=== PATIENT | female | born 1935 ===

== ENCOUNTER 2016-09-13 11:59 | Inpatient (IN) | payer MEDICARE ==
[2016-09-13 12:37] VITALS: BMI 26.6
--- NOTE | 2016-09-13 12:50 | CT ---
PROCEDURE: CT HEAD WITHOUT CONTRAST. HISTORY: CODE STROKE COMPARISON: None available. TECHNIQUE: Axial computed tomography images were obtained through the head/brain without intravenous contrast. This CT exam was performed using one or more of the following dose reduction techniques: Automated exposure control, adjustment of the mA and/or kv according to patient size, and/or use of iterative reconstruction technique. Radiation dose: Total exam DLP = 815.25 mGy-cm. FINDINGS: HEMORRHAGE: No intracranial hemorrhage. BRAIN: Focal encephalomalacia at the right basal ganglia/ thalamus suggestive of old small infarct. Moderate atrophy and a noted. Moderate to extensive white matter hypodensity likely represent chronic microvascular ischemic disease. VENTRICLES: Unremarkable. No hydrocephalus. CALVARIUM: Unremarkable. PARANASAL SINUSES: Unremarkable as visualized. No significant inflammatory changes. MASTOID AIR CELLS: Unremarkable as visualized. No inflammatory changes. OTHER FINDINGS: None. IMPRESSION: No evidence of acute intracranial hemorrhage. Moderate atrophy. Moderate to extensive white matter changes likely represent chronic microvascular ischemic disease. old small infarct at the right basal ganglia/ thalamus.
--- NOTE | 2016-09-13 13:28 | C.PDOC ---
History Of Present Illness 80 yr old female presents to the ER accompanied by her caregiver, states OYSTER GROWER patient was sitting in gabriella couch in her usual state of health when she started staring into space and had involuntary movements to the right arm. 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 Currently the patient denies chest pain, SOB, nausea, vomiting, abdominal pain, headache, dizziness, weakness or numbness. 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 Time Seen by Provider: 09/13/16 12:02 Chief Complaint (Nursing): Weakness/Neurological Deficit History Per: Patient, Other (Caregiver) History/Exam Limitations: no limitations Onset/Duration Of Symptoms: Sudden Onset (OYSTER GROWER) Current Symptoms Are (Timing): Gone Activity At Onset Of Symptoms: Sitting Past Medical History Reviewed: Historical Data, Nursing Documentation, Vital Signs Vital Signs: Last Vital Signs Temp 98.8 F 09/15/16 16:03 Pulse 64 09/15/16 20:00 Resp 20 09/15/16 20:00 BP 136/79 09/15/16 20:00 Pulse Ox 94 L 09/15/16 16:03 - Medical History PMH: Anxiety, Depression, HTN, Hypercholesterolemia Family History: States: No Known Family Hx - Social History Hx Alcohol Use: No Hx Substance Use: No Review Of Systems Except As Marked, All Systems Reviewed And Found Negative. Eyes: Negative for: Vision Change Gastrointestinal: Negative for: Nausea, Vomiting, Abdominal Pain Neurological: Negative for: Weakness, Numbness, Headache, Dizziness Physical Exam - Physical Exam Appears: Well, Non-toxic, No Acute Distress Skin: Warm, Dry Head: Atraumatic, Normacephalic Eye(s): bilateral: Normal Inspection, PERRL, EOMI Oral Mucosa: Moist Neck: Supple Chest: Symmetrical, No Tenderness Cardiovascular: Rhythm Regular, No Murmur Respiratory: Normal Breath Sounds, No Rales, No Rhonchi, No Wheezing Gastrointestinal/Abdominal: Soft, No Tenderness, No Guarding, No Rebound Extremity: Normal ROM, No Swelling Neurological/Psych: Oriented x3 ED Course And Treatment - Laboratory Results Result Diagrams: 09/15/16 05:58 09/14/16 06:14 ECG: Interpreted By Me ECG Rhythm: Sinus Bradycardia ECG Interpretation: No Acute Changes Rate From EC O2 Sat by Pulse Oximetry: 97 - Other Rad CXR X-Ray: Viewed By Me, Read By Radiologist Interpretation: HISTORY: seizure. COMPARISON: No prior. FINDINGS: LUNGS: Mild pulmonary vascular congestion. PLEURA: No significant pleural effusion identified, no pneumothorax apparent. CARDIOVASCULAR: The cardiac silhouette is mildly enlarged. OSSEOUS STRUCTURES: Moderate to severe degenerative changes at the shoulders more prominent on the right. VISUALIZED UPPER ABDOMEN : Normal. OTHER FINDINGS: None. IMPRESSION: Suspicious for mild cardiomegaly and pulmonary vascular congestion. - CT Scan/US CT - Head Other Rad Studies (CT/US): Read By Radiologist, Radiology Report Reviewed CT/US Interpretation: PROCEDURE: CT HEAD WITHOUT CONTRAST. HISTORY: CODE STROKE. COMPARISON: None available. TECHNIQUE: Axial computed tomography images were obtained through the head/brain without intravenous contrast. This CT exam was performed using one or more of the following dose reduction techniques: Automated exposure control, adjustment of the mA and/or kv according to patient size, and/or use of iterative reconstruction technique. Radiation dose: Total exam DLP = 815.25 mGy-cm. FINDINGS: HEMORRHAGE: No intracranial hemorrhage. BRAIN: Focal encephalomalacia at the right basal ganglia/ thalamus suggestive of old small infarct. Moderate atrophy and a noted. Moderate to extensive white matter hypodensity likely represent chronic microvascular ischemic disease. VENTRICLES: Unremarkable. No hydrocephalus. CALVARIUM: Unremarkable. PARANASAL SINUSES: Unremarkable as visualized. No significant inflammatory changes. MASTOID AIR CELLS: Unremarkable as visualized. No inflammatory changes. OTHER FINDINGS: None. IMPRESSION: No evidence of acute intracranial hemorrhage. Moderate atrophy. Moderate to extensive white matter changes likely represent chronic microvascular ischemic disease. old small infarct at the right basal ganglia/ thalamus. MRI - Brain Other Rad Studies (CT/US): Read By Radiologist, Radiology Report Reviewed CT/US Interpretation: PROCEDURE: MRI BRAIN WITH AND WITHOUT CONTRAST. HISTORY : new onset seizure old cva. COMPARISON: None. TECHNIQUE: Multiplanar, multisequence MR images of the brain were obtained with and without intravenous contrast enhancement. FINDINGS: HEMORRHAGE: None. DWI: No evidence of an acute or early subacute infarction. BRAIN PARENCHYMA: Small foci of encephalomalacia at the right basal ganglia and thalamus and right coronal radiata suggestive of old small infarcts. Moderate atrophy and moderate chronic microvascular ischemic disease. ENHANCEMENT: No abnormal intracranial enhancement. VENTRICLES: Unremarkable. No hydrocephalus. CRANIUM: Unremarkable. ORBITS: Grossly unremarkable. PARANASAL SINUSES/MASTOIDS: Clear. VASCULAR SYSTEM: Skull base flow voids intact. OTHER FINDINGS: None . IMPRESSION: No evidence of acute infarct or acute pathology in the brain. No evidence of enhancing mass lesion or abnormal enhancement in the brain. Old lacunar infarcts at the right basal ganglia/thalamus right coronal radiata. Moderate atrophy and moderate chronic microvascular ischemic disease. NIHSS Stroke Scale - Date/Time Evaluation Performed Date Performed: 09/13/16 Time Performed: 13:00 When Was NIHSS Performed: Baseline - How Severe is the Stoke Level of Consciousness: 0=Alert LOC to Questions: 0=Both comments correct LOC to commands: 0=Obeys both correctly Best Gaze: 0=Normal Visual: 0=No visual loss Facial: 1=Minor asymmetry Motor Arm - Left: 0=No drift Motor Arm - Right: 0=No drift Motor Leg - Left: 0=No drift Motor Leg - Right: 0=No drift Limb Ataxia: 0=Absent Sensory: 0=Normal Best Language: 1=Mild to moderate aphasia Dysarthia: 0=Normal articulation (score 2 but does not indicate "minor stroke") Extinction & Inattention (Neglect): 0=Normal, no object Score: 2 Severity Of Stroke: 1-4= Minor Stroke rTPA Inclusion/Exclusion - Refusal of Treatment Patient Refused Treatment: Yes Medical Decision Making Medical Decision Making: Clearly TPA not indicated at this time Orders * CT - Head * MRI - Brain * CXR * EKG * Troponin * CBC * Dig * Keppra IVPB * Sodium Chloride IV Signs/sympt c/w new onset seizure Pt remained stable in the Ed Case discussed with dr Mathew who agreeded with admission also discussed with dr Mart, recomended 1g keppra, then 500 q12 and MRI Disposition Counseled Patient/Family Regarding: Studies Performed, Diagnosis - Disposition Disposition: HOSPITALIZED Disposition Time: 14:10 Condition: FAIR - Clinical Impression Clinical Impression: New onset seizure, Cerebrovascular accident, old - Scribe Statement The provider has reviewed the documentation as recorded by the Jennifer Faust Provider Attestation: All medical record entries made by the Gisselibian were at my direction and personally dictated by me. I have reviewed the chart and agree that the record accurately reflects my personal performance of the history, physical exam, medical decision making, and the department course for this patient. I have also personally directed, reviewed, and agree with the discharge instructions and disposition.
[2016-09-13] MEDS ORDERED: levETIRAcetam 500 MG in Sodium Chloride 0.9% 100 ML IVPB ONE ×2 (13:45→14:30)
[2016-09-13 13:49] LABS: BASO # 0.1 K/uL (0.0-0.2); BASO % 1.5 % (0.0-2.0); EOS # 0.1 K/uL (0.0-0.7); EOS % 2.4 % (0.0-4.0); HEMATOCRIT 33.4 % (34.0-47.0); LYMPH # 1.3 K/uL (1.0-4.3); LYMPH % 22.4 % (20.0-40.0); MEAN CELL VOLUME 86.6 fL (81.0-99.0); MEAN CORPUSCULAR HEMOGLOBIN 28.1 pg (27.0-31.0); MEAN CORPUSCULAR HGB CONC 32.4 g/dL (33.0-37.0); MEAN PLATELET VOLUME 9.5 fL (7.2-11.7); MONO # 0.5 K/uL (0.0-0.8); MONO % 8.7 % (0.0-10.0); RED CELL DISTRIBUTION WIDTH 13.9 % (11.5-14.5); WHITE BLOOD COUNT 5.8 K/uL (4.8-10.8)
[2016-09-13 13:58] LABS: INR 1.1
[2016-09-13 14:07] LABS: CHLORIDE 92 mmol/L (98-107); POTASSIUM 3.6 mmol/L (3.6-5.2); SODIUM 139 mmol/L (132-148)
[2016-09-13 14:10] LABS: ALB/GLOB RATIO 1.3 (1.0-2.1); ALKALINE PHOSPHATASE 59 U/L (38-126); ALT/SGPT 18 U/L (9-52); AST/SGOT 29 U/L (14-36); BILIRUBIN,TOTAL 0.2 mg/dL (0.2-1.3); BLOOD UREA NITROGEN 15 mg/dL (7-17); CARBON DIOXIDE 31 mmol/L (22-30); GFR AFRICAN-AMERICAN > 60; GLUCOSE,RANDOM 100 mg/dL (65-105); TOTAL PROTEIN 7.2 g/dL (6.3-8.3)
[2016-09-13 14:11] LABS: CALCIUM 9.1 mg/dl (8.6-10.4)
--- NOTE | 2016-09-13 15:20 | RAD ---
HISTORY: seizure COMPARISON: No prior. FINDINGS: LUNGS: Mild pulmonary vascular congestion. PLEURA: No significant pleural effusion identified, no pneumothorax apparent. CARDIOVASCULAR: The cardiac silhouette is mildly enlarged. OSSEOUS STRUCTURES: Moderate to severe degenerative changes at the shoulders more prominent on the right. VISUALIZED UPPER ABDOMEN: Normal. OTHER FINDINGS: None. IMPRESSION: Suspicious for mild cardiomegaly and pulmonary vascular congestion.
[2016-09-13] MEDS ORDERED: Gadodiamide 287 MG/ML VIAL (15ML) IV ONE (15:38)
--- NOTE | 2016-09-13 16:07 | MRI ---
PROCEDURE: MRI BRAIN WITH AND WITHOUT CONTRAST HISTORY: new onset seizure old cva COMPARISON: None. TECHNIQUE: Multiplanar, multisequence MR images of the brain were obtained with and without intravenous contrast enhancement. FINDINGS: HEMORRHAGE: None DWI: No evidence of an acute or early subacute infarction. BRAIN PARENCHYMA: Small foci of encephalomalacia at the right basal ganglia and thalamus and right coronal radiata suggestive of old small infarcts. Moderate atrophy and moderate chronic microvascular ischemic disease. ENHANCEMENT: No abnormal intracranial enhancement. VENTRICLES: Unremarkable. No hydrocephalus. CRANIUM: Unremarkable. ORBITS: Grossly unremarkable. PARANASAL SINUSES/MASTOIDS: Clear VASCULAR SYSTEM: Skull base flow voids intact. OTHER FINDINGS: None . IMPRESSION: No evidence of acute infarct or acute pathology in the brain. No evidence of enhancing mass lesion or abnormal enhancement in the brain. Old lacunar infarcts at the right basal ganglia/thalamus right coronal radiata. Moderate atrophy and moderate chronic microvascular ischemic disease.
[2016-09-14 00:36] LABS: CHOLESTEROL 164 mg/dL (0-199)
[2016-09-14 06:22] LABS: HEMATOCRIT 33.2 % (34.0-47.0); MEAN CELL VOLUME 85.4 fL (81.0-99.0); MEAN CORPUSCULAR HEMOGLOBIN 28.1 pg (27.0-31.0); MEAN CORPUSCULAR HGB CONC 32.9 g/dL (33.0-37.0); MEAN PLATELET VOLUME 9.3 fL (7.2-11.7); RED CELL DISTRIBUTION WIDTH 13.9 % (11.5-14.5); WHITE BLOOD COUNT 6.7 K/uL (4.8-10.8)
[2016-09-14 07:23] LABS: CHLORIDE 95 mmol/L (98-107); POTASSIUM 3.3 mmol/L (3.6-5.2); SODIUM 139 mmol/L (132-148)
[2016-09-14 07:26] LABS: BLOOD UREA NITROGEN 14 mg/dL (7-17); CARBON DIOXIDE 32 mmol/L (22-30); CHOLESTEROL 156 mg/dL (0-199); GFR AFRICAN-AMERICAN > 60; GLUCOSE,RANDOM 110 mg/dL (65-105)
[2016-09-14 07:27] LABS: CALCIUM 8.7 mg/dl (8.6-10.4)
[2016-09-14 07:40] LABS: FREE T4 1.38 ng/dL (0.78-2.19); IRON 46 ug/dL (37-170)
[2016-09-14 07:54] LABS: THYROID STIMULATING HORMONE 1.56 mIU/L (0.46-4.68)
[2016-09-14] MEDS: Vitamin B Complex/Vitamin C Tab PO SCH (09:34)
[2016-09-14] MEDS: buPROPion 150 mg/24 Hours XL Tab PO SCH (09:50)
[2016-09-14] MEDS ORDERED: Pantoprazole 40 mg EC Tab PO SCH (10:00)
[2016-09-14] MEDS ORDERED: D3 PO SCH (10:00)
[2016-09-14] MEDS ORDERED: TURMERIC RT XT PO SCH (10:00)
[2016-09-14] MEDS ORDERED: LEVOMEFOLATE CALCIUM 15 MG PO SCH (10:00)
[2016-09-14] MEDS ORDERED: MAG OXIDE PO SCH (10:00)
[2016-09-14] MEDS ORDERED: Metoprolol Succinate 25 mg XL Tab PO SCH (10:00)
--- NOTE | 2016-09-14 12:19 | CP.PCM.HP ---
History of Present Illness - History of Present Illness History of Present Illness: pt brought in to er for new onset seizers wetnessde by managed care liaison shaking stearing non responseve for 10 mint Present on Admission - Present on Admission Any Indicators Present on Admission: No Review of Systems - Review of Systems Systems not reviewed;Unavailable: Acuity of Condition - Constitutional Constitutional: As Per HPI - EENT Eyes: As Per HPI Ears: As Per HPI Nose/Mouth/Throat: As Per HPI - Breasts Breasts: As Per HPI - Cardiovascular Cardiovascular: As Per HPI - Gastrointestinal Gastrointestinal: As Per HPI - Genitourinary Genitourinary: As Per HPI - Reproductive: Female Reproductive:Female: As Per HPI - Menstruation Menstruation: As Per HPI - Musculoskeletal Musculoskeletal: As Per HPI - Neurological Neurological: Focal Weakness Additional comments: l side slight weekness from previous cva - Psychiatric Psychiatric: Anxiety, Depression - Endocrine Endocrine: Polydipsia - Hematologic/Lymphatic Hematologic: As Per HPI Past Patient History - Past Medical History & Family History Past Medical History?: Yes - Past Social History Smoking Status: Never Smoked - CARDIAC Hx Cardiac Disorders: Yes Hx Atrial Fibrillation: Yes Hx Hypercholesterolemia: Yes Hx Hypertension: Yes - PULMONARY Hx Respiratory Disorders: No - NEUROLOGICAL Hx Neurological Disorder: Yes HX Cerebrovascular Accident: Yes (x3 last 5 years) - HEENT Hx HEENT Problems: Yes - RENAL Hx Chronic Kidney Disease: No - ENDOCRINE/METABOLIC Hx Endocrine Disorders: No - HEMATOLOGICAL/ONCOLOGICAL Hx Blood Disorders: Yes Hx Blood Transfusions: Yes Hx Blood Transfusion Reaction: No - INTEGUMENTARY Hx Dermatological Problems: No - MUSCULOSKELETAL/RHEUMATOLOGICAL Hx Falls: Yes - GASTROINTESTINAL Hx Gastrointestinal Disorders: Yes Hx Constipation: Yes - GENITOURINARY/GYNECOLOGICAL Hx Genitourinary Disorders: No - PSYCHIATRIC Hx Psychophysiologic Disorder: Yes Hx Anxiety: Yes Hx Depression: Yes Hx Substance Use: No - SURGICAL HISTORY Hx Surgeries: Yes Hx Cardiac Catheterization: Yes (stents x3) Hx Dilation and Curettage: Yes Hx Joint Replacement: Yes (bilater knee replacement) - ANESTHESIA Hx Anesthesia: Yes Hx Anesthesia Reactions: No Meds Allergies/Adverse Reactions: Allergies Allergy/AdvReac Type Severity Reaction Status Date / Time No Known Allergies Allergy Verified 09/13/16 12:19 Physical Exam - Constitutional Appears: Non-toxic - Head Exam Head Exam: NORMAL INSPECTION - Eye Exam Eye Exam: Normal appearance Pupil Exam: NORMAL ACCOMODATION - ENT Exam ENT Exam: Mucous Membranes Moist - Neck Exam Neck exam: Positive for: Full Rom - Respiratory Exam Respiratory Exam: Clear to Auscultation Bilateral - Cardiovascular Exam Cardiovascular Exam: Irregular Rhythm - GI/Abdominal Exam GI & Abdominal Exam: Normal Bowel Sounds - Rectal Exam Rectal Exam: NORMAL INSPECTION - Extremities Exam Extremities exam: Positive for: normal inspection - Back Exam Back exam: NORMAL INSPECTION - Neurological Exam Neurological exam: Motor Sensory Deficit Additional comments: l side - Psychiatric Exam Psychiatric exam: Depressed - Skin Skin Exam: Normal Color Results - Vital Signs Recent Vital Signs: Last Vital Signs Temp 97.5 F L 09/14/16 07:32 Pulse 70 09/14/16 07:35 Resp 20 09/14/16 07:32 BP 145/69 09/14/16 09:33 Pulse Ox 95 09/14/16 07:32 - Labs Result Diagrams: 09/14/16 06:14 09/14/16 06:14 Labs: Laboratory Results - last 24 hr 09/13/16 09/13/16 09/13/16 16:14 18:54 21:08 WBC RBC Hgb Hct MCV MCH MCHC RDW Plt Count MPV Sodium Potassium Chloride Carbon Dioxide Anion Gap BUN Creatinine Est GFR ( Amer) Est GFR (Non-Af Amer) POC Glucose (mg/dL) 154 H 111 H Random Glucose Calcium Iron TIBC % Saturation Ferritin Triglycerides Cholesterol LDL Cholesterol Direct HDL Cholesterol Free T4 TSH 3rd Generation Digoxin 0.7 L 09/14/16 09/14/16 09/14/16 00:26 06:14 06:29 WBC 6.7 RBC 3.88 Hgb 10.9 L Hct 33.2 L MCV 85.4 MCH 28.1 MCHC 32.9 L RDW 13.9 Plt Count 293 MPV 9.3 Sodium 139 Potassium 3.3 L Chloride 95 L Carbon Dioxide 32 H Anion Gap 15 BUN 14 Creatinine 0.9 Est GFR ( Amer) > 60 Est GFR (Non-Af Amer) > 60 POC Glucose (mg/dL) 125 H Random Glucose 110 H Calcium 8.7 Iron 46 TIBC 332 % Saturation 14 L Ferritin 12.7 Triglycerides 120 102 Cholesterol 164 156 LDL Cholesterol Direct 81 79 HDL Cholesterol 51 47 Free T4 1.38 TSH 3rd Generation 1.56 Digoxin 09/14/16 11:21 WBC RBC Hgb Hct MCV MCH MCHC RDW Plt Count MPV Sodium Potassium Chloride Carbon Dioxide Anion Gap BUN Creatinine Est GFR ( Amer) Est GFR (Non-Af Amer) POC Glucose (mg/dL) 117 H Random Glucose Calcium Iron TIBC % Saturation Ferritin Triglycerides Cholesterol LDL Cholesterol Direct HDL Cholesterol Free T4 TSH 3rd Generation Digoxin Assessment & Plan - Assessment and Plan (Free Text) Assessment: ac seizer old cva depresion anexiety Plan: cont med and consultation - Date & Time Date: 09/14/16 Time: 12:22
--- NOTE | 2016-09-14 14:02 | CP.PCM.CON ---
History of Present Illness - History of Present Illness History of Present Illness: Mrs. Boogie is a 80-year-old woman with a past medical history of atrial fibrilliation, previous right subcortical infarcts, hypertension and depression who was wintessed by her crabber to have an episode of staring and subsequent left upper extremity shaking with about 5 minutes of unresponsiveness. The patient does have some residual left side weakness, but it is slight and she usually ambulates well with a walker. According to the patient's niece, there was another episode of confusion last night that lasted for about two hours. Although the patient was alert and awake, she seemed to be unable to orient herself to the situation and time. Neurology was consulted to assist with the management and care. Review of Systems - Review of Systems All systems: reviewed and no additional remarkable complaints except - Constitutional Constitutional: As Per HPI - EENT Eyes: As Per HPI - Cardiovascular Cardiovascular: As Per HPI - Musculoskeletal Musculoskeletal: As Per HPI - Neurological Neurological: As Per HPI - Psychiatric Psychiatric: As Per HPI Past Patient History - Past Medical History & Family History Past Medical History?: Yes - Past Social History Smoking Status: Never Smoked - CARDIAC Hx Cardiac Disorders: Yes Hx Atrial Fibrillation: Yes Hx Hypercholesterolemia: Yes Hx Hypertension: Yes - PULMONARY Hx Respiratory Disorders: No - NEUROLOGICAL Hx Neurological Disorder: Yes HX Cerebrovascular Accident: Yes (x3 last 5 years) - HEENT Hx HEENT Problems: Yes - RENAL Hx Chronic Kidney Disease: No - ENDOCRINE/METABOLIC Hx Endocrine Disorders: No - HEMATOLOGICAL/ONCOLOGICAL Hx Blood Disorders: Yes Hx Blood Transfusions: Yes Hx Blood Transfusion Reaction: No - INTEGUMENTARY Hx Dermatological Problems: No - MUSCULOSKELETAL/RHEUMATOLOGICAL Hx Falls: Yes - GASTROINTESTINAL Hx Gastrointestinal Disorders: Yes Hx Constipation: Yes - GENITOURINARY/GYNECOLOGICAL Hx Genitourinary Disorders: No - PSYCHIATRIC Hx Psychophysiologic Disorder: Yes Hx Anxiety: Yes Hx Depression: Yes Hx Substance Use: No - SURGICAL HISTORY Hx Surgeries: Yes Hx Cardiac Catheterization: Yes (stents x3) Hx Dilation and Curettage: Yes Hx Joint Replacement: Yes (bilater knee replacement) - ANESTHESIA Hx Anesthesia: Yes Hx Anesthesia Reactions: No Meds Allergies/Adverse Reactions: Allergies Allergy/AdvReac Type Severity Reaction Status Date / Time No Known Allergies Allergy Verified 09/13/16 12:19 - Medications Medications: Current Medications Amlodipine Besylate (Norvasc) 5 mg PO DAILY [facility] Last Admin: 09/14/16 09:32 Dose: 5 mg Aspirin (Ecotrin) 81 mg PO DAILY [facility] Last Admin: 09/14/16 09:34 Dose: 81 mg Bupropion HCl (Wellbutrin Xl) 300 mg PO DAILY [facility] Last Admin: 09/14/16 09:50 Dose: 300 mg Dabigatran (Pradaxa) 150 mg PO BID [facility] Last Admin: 09/14/16 09:35 Dose: 150 mg Enalapril Maleate (Vasotec) 5 mg PO DAILY [facility] Last Admin: 09/14/16 09:33 Dose: 5 mg Escitalopram Oxalate (Lexapro) 20 mg PO DAILY [facility] Last Admin: 09/14/16 09:36 Dose: 20 mg Famotidine (Pepcid) 20 mg PO DAILY [facility] Last Admin: 09/14/16 09:32 Dose: 20 mg Hydrochlorothiazide (Microzide) 12.5 mg PO DAILY [facility] Metoprolol Succinate (Toprol Xl) 25 mg PO DAILY [facility] Last Admin: 09/14/16 09:34 Dose: 25 mg Rosuvastatin Calcium (Crestor) 10 mg PO DAILY [facility] Vitamin B Complex/Vitamin C (Berocca) 1 tab PO DAILY [facility] Last Admin: 09/14/16 09:34 Dose: 1 tab Zolpidem Tartrate (Ambien) 5 mg PO PRN PRN Reason: Insomnia Physical Exam - Constitutional Appears: Well - Head Exam Head Exam: ATRAUMATIC, NORMAL INSPECTION, NORMOCEPHALIC - Eye Exam Eye Exam: EOMI, Normal appearance, PERRL - Neck Exam Neck exam: Positive for: Normal Inspection - Respiratory Exam Respiratory Exam: Clear to Auscultation Bilateral, NORMAL BREATHING PATTERN - Cardiovascular Exam Cardiovascular Exam: REGULAR RHYTHM - Neurological Exam Neurological exam: Abnormal Gait, Alert, CN II-XII Intact, Normal Gait, Oriented x3, Reflexes Normal - Expanded Neurological Exam Expanded Cranial nerves: EOM's Intact: Normal, Facial Sensation: Normal, Gag Reflex: Normal Cerebellar Function: Finger to Nose: Normal, Heel to Kowalski: Normal Upper motor neuron: Babinski Sign: Normal, Pronator Drift: Abnormal Left Sensory exam: Lower Extremity Light Touch: Normal, Lower Extremity Pin Prick: Normal, Upper Extremity Light Touch: Normal, Upper Extremity Pin Prick: Normal Neuro motor strength exam: Left Upper Extremity: 4, Right Upper Extremity: 5, Left Lower Extremity: 5, Right Lower Extremity: 5 DTR: Bicep Left: 3+, Bicep Right: 2+, Patellar Left: 3+, Patellar Right: 2+ Results - Vital Signs Recent Vital Signs: Last Vital Signs Temp 97.5 F L 09/14/16 07:32 Pulse 72 09/14/16 07:35 Resp 20 09/14/16 07:32 BP 145/69 09/14/16 09:33 Pulse Ox 95 09/14/16 07:32 - Labs Result Diagrams: 09/14/16 06:14 09/14/16 06:14 Labs: Laboratory Results - last 24 hr 09/13/16 09/13/16 09/13/16 16:14 18:54 21:08 WBC RBC Hgb Hct MCV MCH MCHC RDW Plt Count MPV Sodium Potassium Chloride Carbon Dioxide Anion Gap BUN Creatinine Est GFR ( Amer) Est GFR (Non-Af Amer) POC Glucose (mg/dL) 154 H 111 H Random Glucose Calcium Iron TIBC % Saturation Ferritin Triglycerides Cholesterol LDL Cholesterol Direct HDL Cholesterol Free T4 TSH 3rd Generation Digoxin 0.7 L 09/14/16 09/14/16 09/14/16 00:26 06:14 06:29 WBC 6.7 RBC 3.88 Hgb 10.9 L Hct 33.2 L MCV 85.4 MCH 28.1 MCHC 32.9 L RDW 13.9 Plt Count 293 MPV 9.3 Sodium 139 Potassium 3.3 L Chloride 95 L Carbon Dioxide 32 H Anion Gap 15 BUN 14 Creatinine 0.9 Est GFR ( Amer) > 60 Est GFR (Non-Af Amer) > 60 POC Glucose (mg/dL) 125 H Random Glucose 110 H Calcium 8.7 Iron 46 TIBC 332 % Saturation 14 L Ferritin 12.7 Triglycerides 120 102 Cholesterol 164 156 LDL Cholesterol Direct 81 79 HDL Cholesterol 51 47 Free T4 1.38 TSH 3rd Generation 1.56 Digoxin 09/14/16 11:21 WBC RBC Hgb Hct MCV MCH MCHC RDW Plt Count MPV Sodium Potassium Chloride Carbon Dioxide Anion Gap BUN Creatinine Est GFR ( Amer) Est GFR (Non-Af Amer) POC Glucose (mg/dL) 117 H Random Glucose Calcium Iron TIBC % Saturation Ferritin Triglycerides Cholesterol LDL Cholesterol Direct HDL Cholesterol Free T4 TSH 3rd Generation Digoxin - Imaging and Cardiology MRI - head Status: Image reviewed by me, Report reviewed by me (several areas noted of encephalomalacia in the right basal ganglia and thalamic regions) Assessment & Plan (1) New onset seizure Assessment and Plan: This is most likely due to bupropion lowering the seizure threshold in a patient with previous injury patterns to the subcortical and thalamic regions. I recommend stopping this medication and adding a seizure medication with mood stabilizing properties. The best options include lamictal, valproic acid or carbamazepine. I recommend psychiatry consultation to assist with stopping bupropion and adding an appropriate AED of the aforementioned 3. An EEG is also recommended to evaluate for underlying epileptiform discharges. Furthermore, the patient should be assessed by PT/OT for required assistance. Continue other medications. Status: Acute Priority: High
--- NOTE | 2016-09-14 16:32 | CON ---
DATE: 09/14/2016 REASON FOR CONSULTATION: Altered mental status, history of coronary artery disease and hypertension. The history was obtained from the patient's son who was at the bedside. The patient is a 80-year-old female who has a history of coronary artery disease, and underwent 3 coronary stents in the past at [facility]. The most recent one was at least 8 years ago. The patient sustained 3 s trokes after losing her 5 years ago. She also has experienced depression and is seeing a psy chiatrist. The residual stroke was minimal and the patient is able to be functional at home with a f ull time homemaker who sleeps overnight, but in a different room in the apartment. Apparently, the c aretaker found the patient poorly responsive, call the son and EMS was activated. The patient is confused, but is able to verbalize and eat and walk in the meantime. There is no documented recen t fall except recently the patient tripped by the carpet and fell on a couch and that was recorded by a remote monitoring, seen by the son and according to him, she tripped on a place small piece of car pet and the fall was uneventful. There was no recent history of chest pain. SOCIAL HISTORY: Nonsmoker, nondrinker. 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 MEDICATIONS: Vitamin C 1 mg once a day, Ambien 5 mg at bedtime, Crestor 10 mg once a day, aspirin 81 mg once a day, Lexapro 20 mg once a day, hydrochlorothiazide 12.5 mg once a day, Norvasc 5 mg once a day, Pepcid 20 mg once a day, Pradaxa 150 mg twice a day, Toprol-XL 25 mg once a day, 5 mg onc e a day, Wellbutrin 300 mg daily. PAST MEDICAL HISTORY: Hypertension, paroxysmal atrial fibrillation, 3 strokes and 3 stents in the [address] st as well as a history of depression. PHYSICAL EXAMINATION: GENERAL: The patient is an elderly female who does not appear to be in acute distress. VITAL SIGNS: Blood pressure 145/69, heart rate 72, temperature 97.5, respirations 20. HEENT: Periorbital darken skin, which according to the family has been an old finding. NECK: No JVD. CHEST: Clear. HEART: S1, S2 regular. ABDOMEN: Soft. EXTREMITIES: No edema. LABORATORY DATA: Hemoglobin and hematocrit 10.9 and 33.2, white count and platelet count are within normal limits. SMA-7 today: Sodium 139, potassium 3.3, chloride 95, CO2 of 32, glucose 110, BUN 14, creatinine 0.9. Lipid profile is within normal limits. TSH level is within normal limits. INR is 1.1, PTT 42. Brain MRI report: No evidence of acute infarct or pathology in the brain. No ev idence of enhancing mass lesion or abnormal enhancements in the brain, old lacunar infarct at the rig ht basal ganglia/thalamus, right , moderate atrophy and moderate chronic microvascular ischemic changes. EKG revealed sinus bradycardia with sinus arrhythmia at a rate of 52. ASSESSMENT: 1. Altered mental status, questionable seizure activity. 2. History of coronary artery disease status post coronary artery stenting 3 times in the past; the most recent one was 8 years ago. 3. Mild sinus bradycardia. 4. Three old strokes, no acute findings at this time. 5. Paroxysmal atrial fibrillation. RECOMMENDATIONS: Continue current Ecotrin 81 mg once a day, Vasotec at 5 mg once a day, Pradaxa 150 mg twice a day, Crestor 10 mg once a day. Hold Toprol-XL for heart rate below 60. Obtain an echocar diogram. The patient is scheduled for and EEG. Manuel Marr MD cc: [id number] TT: 09/14/2016 16:31:32 Confirmation # [id number] Dictation # [id number] nitin
[2016-09-14] MEDS ORDERED: Digoxin 125 mcg (0.125 mg) Tab PO SCH (18:00)
[2016-09-15 06:24] LABS: HEMATOCRIT 33.2 % (34.0-47.0); MEAN CELL VOLUME 85.9 fL (81.0-99.0); MEAN CORPUSCULAR HEMOGLOBIN 28.8 pg (27.0-31.0); MEAN CORPUSCULAR HGB CONC 33.5 g/dL (33.0-37.0); MEAN PLATELET VOLUME 9.3 fL (7.2-11.7); RED CELL DISTRIBUTION WIDTH 13.9 % (11.5-14.5); WHITE BLOOD COUNT 6.9 K/uL (4.8-10.8)
[2016-09-15] MEDS: Vitamin B Complex/Vitamin C Tab PO SCH (11:40)
[2016-09-15] MEDS: Metoprolol Succinate 25 mg XL Tab PO SCH (11:44)
[2016-09-15] MEDS: buPROPion 150 mg/24 Hours XL Tab PO SCH (11:45)
[2016-09-15 16:04] VITALS: RESP 20
--- NOTE | 2016-09-15 17:08 | PN ---
DATE: 09/15/2016 There is no reported arrhythmia and the patient denies any headache or dizziness. PHYSICAL EXAMINATION: VITAL SIGNS: Blood pressure 118/67, heart rate , temperature 98.8, respirations 20. HEENT: Normocephalic. NECK: No JVD. CHEST: Clear. HEART: S1, S2 regular. EXTREMITIES: No edema. LABORATORIES: Today's hemoglobin and hematocrit 11.1 and 33.2, white count and platelet count are wi thin normal limits. Today's blood sugars were 103 and 122. Brain MRI: No evidence of acute infarct or acute pathology. No evidence for enhancing mass lesion or abnormal enhancement in the brain. Ol d lacunar infarcts and right basal ganglia, right burris radiata. ASSESSMENT: 1. Paroxysmal atrial fibrillation. 2. Sinus bradycardia. 3. Altered mental status. 4. Rule out seizure activity. 5. Mild hypokalemia. RECOMMENDATIONS: Continue current Ambien at 5 mg at bedtime, aspirin 81 mg once a day, Crestor 10 mg once a day, hydrochlorothiazide 12.5 mg once a day, Pradaxa 150 mg twice a day, Toprol-XL 25 mg once a day, Vasotec at 5 mg once a day. I will review the echocardiographic study performed today and ob darrius KWOK in the a.m. Manuel Marr MD cc: [id number] TT: 09/15/2016 17:08:36 Confirmation # [id number] Dictation # [id number] mn
--- NOTE | 2016-09-15 18:12 | CP.PCM.PN ---
Subjective - Date & Time of Evaluation Date of Evaluation: 09/15/16 Time of Evaluation: 18:10 - Subjective Subjective: pt in bed doesnot c/o no new seizers Objective - Vital Signs/Intake and Output Vital Signs (last 24 hours): Temp Pulse Resp BP Pulse Ox 98.8 F 59 L 20 118/67 94 L 09/15/16 16:03 09/15/16 16:03 09/15/16 16:03 09/15/16 16:03 09/15/16 16:03 Intake and Output: 09/15/16 09/15/16 06:59 18:59 Intake Total 520 Balance 520 - Medications Medications: Current Medications Amlodipine Besylate (Norvasc) 5 mg PO DAILY [facility] Last Admin: 09/15/16 11:43 Dose: 5 mg Aspirin (Ecotrin) 81 mg PO DAILY [facility] Last Admin: 09/15/16 11:41 Dose: 81 mg Bupropion HCl (Wellbutrin Xl) 300 mg PO DAILY [facility] Last Admin: 09/15/16 11:45 Dose: 300 mg Dabigatran (Pradaxa) 150 mg PO BID [facility] Last Admin: 09/15/16 17:48 Dose: 150 mg Docusate Sodium (Colace) 100 mg PO BID [facility] Last Admin: 09/15/16 17:47 Dose: 100 mg Enalapril Maleate (Vasotec) 5 mg PO DAILY [facility] Last Admin: 09/15/16 11:44 Dose: 5 mg Escitalopram Oxalate (Lexapro) 20 mg PO DAILY [facility] Last Admin: 09/15/16 11:41 Dose: 20 mg Famotidine (Pepcid) 20 mg PO DAILY [facility] Last Admin: 09/15/16 11:43 Dose: 20 mg Hydrochlorothiazide (Microzide) 12.5 mg PO DAILY [facility] Last Admin: 09/15/16 11:42 Dose: 12.5 mg Metoprolol Succinate (Toprol Xl) 25 mg PO DAILY [facility] Last Admin: 09/15/16 11:44 Dose: 25 mg Rosuvastatin Calcium (Crestor) 10 mg PO HS [facility] Last Admin: 09/14/16 21:29 Dose: 10 mg Vitamin B Complex/Vitamin C (Berocca) 1 tab PO DAILY [facility] Last Admin: 09/15/16 11:40 Dose: 1 tab Zolpidem Tartrate (Ambien) 5 mg PO HS PRN PRN Reason: Insomnia Last Admin: 09/14/16 21:28 Dose: 5 mg - Labs Labs: 09/15/16 05:58 09/14/16 06:14 PT 12.7 SECONDS (9.7-12.2) H 09/13/16 13:39 INR 1.1 09/13/16 13:39 APTT 42 SECONDS (21-34) H 09/13/16 13:39 - Constitutional Appears: Non-toxic - Head Exam Head Exam: NORMAL INSPECTION - Eye Exam Eye Exam: Normal appearance Pupil Exam: NORMAL ACCOMODATION - ENT Exam ENT Exam: Mucous Membranes Moist - Neck Exam Neck Exam: Normal Inspection - Respiratory Exam Respiratory Exam: Clear to Ausculation Bilateral - Cardiovascular Exam Cardiovascular Exam: REGULAR RHYTHM - GI/Abdominal Exam GI & Abdominal Exam: Normal Bowel Sounds - Rectal Exam Rectal Exam: NORMAL INSPECTION - Extremities Exam Extremities Exam: Normal Inspection - Back Exam Back Exam: NORMAL INSPECTION - Neurological Exam Neurological Exam: Awake - Psychiatric Exam Psychiatric exam: Normal Affect - Skin Skin Exam: Normal Color Assessment and Plan - Assessment and Plan (Free Text) Assessment: seizers s/p cva generalised weekness Plan: pt
[2016-09-16 01:41] VITALS: O2SAT 96
[2016-09-16 06:39] LABS: CHLORIDE 96 mmol/L (98-107); POTASSIUM 3.1 mmol/L (3.6-5.2); SODIUM 142 mmol/L (132-148)
[2016-09-16 06:41] LABS: GFR AFRICAN-AMERICAN > 60
[2016-09-16 06:42] LABS: BLOOD UREA NITROGEN 20 mg/dL (7-17); CALCIUM 8.3 mg/dl (8.6-10.4); CARBON DIOXIDE 32 mmol/L (22-30); GLUCOSE,RANDOM 88 mg/dL (65-105)
--- NOTE | 2016-09-16 07:33 | EEG ---
DATE: 09/15/2016 The record is obtained for a history of new onset seizures, old CVA, rule out seizures, rule out ence phalopathy. The record was obtained while the patient was awake and drowsy. The record was symmetri shavon equal on both sides. The velocity was 6 cycles per second. The waves are fairly formed, fairl y organized with a posterior distribution, moderate in amplitude, fairly reactive to eye opening. Th ere were no abnormal discharges. No spikes, no polyspike, no sharp wave, no focal slowing, no paroxy smal discharge. The record showed eye movement artifact, electrode artifact, and muscle movement art ifacts. There are periods of drowsiness during which attenuation and slowing of the record were seen and theta waves were seen. SUMMARY: This is an abnormal record, awake and drowsy, significant for generalized slowing. This mi ght be consistent with encephalopathy. Clinical correlation is recommended. Ling Vargas MD cc: [id number] TT: 09/16/2016 07:33:05 Confirmation # [id number] Dictation # [id number] nn
--- NOTE | 2016-09-16 07:40 | CARD ---
APPROVED REPORT EXAM: Two-dimensional and M-mode echocardiogram with Doppler and color Doppler. Other Information Quality : GoodRhythm : INDICATION CVA/TIA RISK FACTORS Hypertension Hyperlipidemia 2D DIMENSIONS LVOT Diameter1.6 (1.8-2.4cm) M-Mode DIMENSIONS RVDd1.35 (2.1-3.2cm)Left Atrium (MM)6.35 (2.5-4.0cm) IVSd1.11 (0.7-1.1cm)Aortic Root2.81 (2.2-3.7cm) LVDd5.10 (4.0-5.6cm)Aortic Cusp Exc.1.25 (1.5-2.0cm) PWd1.25 (0.7-1.1cm)FS (%) 40 % LVDs3.05 (2.0-3.8cm)LVEF (%)70 (>50%) Aortic Valve AoV Peak Ndcfqpxq682.1cm/sAoV VTI47.7cmAO Peak GR.18mmHg LVOT Peak Bykrazqs08.6cm/sLVOT VTI21.75cmAO Mean GR.11mmHg PEREZ (VMAX)0.53uy7MSM (VTI)0.86cm2 Mitral Valve MV E Tnxbpjen223.6cm/sMV A Aofxzdlg80.2cm/sE/A ratio3.8 TDI E/Lateral E'0.0E/Medial E'0.0 Tricuspid Valve TR Peak Algeuwsk726ca/sTR Peak Gr.21ifOjAKRD95lfIb LEFT VENTRICLE The left ventricle is normal size. There is borderline to mild asymmetric left ventricular hypertrophy. The left ventricular function is normal. The Ejection Fraction is 65-70%. There is normal LV segmental wall motion. The left ventricular diastolic function is normal. No left ventricle thrombus noted on this study. RIGHT VENTRICLE The right ventricle is normal size. The right ventricular systolic function is normal. ATRIA The left atrium is severely dilated. The right atrium size is normal. AORTIC VALVE The aortic valve is moderately calcified. No aortic regurgitation is present. There is moderate to severe valvular aortic stenosis. Calculated aortic valve area is 0.86 cm2 with maximum pressure gradient of 18 mmHg and mean pressure gradient of 11 mmHg. MITRAL VALVE Mitral annular calcification is moderate. There is no evidence of mitral valve prolapse. There is no mitral valve stenosis. Mitral regurgitation is mild to moderate. TRICUSPID VALVE The tricuspid valve is normal in structure. There is mild tricuspid regurgitation. Right ventricular systolic pressure is estimated at less than 30 mmHg. There is no pulmonary hypertension. There is no tricuspid valve prolapse or vegetation. There is no tricuspid valve stenosis. PULMONIC VALVE The pulmonic valve is not well visualized. There is moderate pulmonic valvular regurgitation. GREAT VESSELS The aortic root is normal in size. The IVC is normal in size and collapses >50% with inspiration. PERICARDIAL EFFUSION There is no pericardial effusion. There is no pleural effusion. <Conclusion> There is borderline to mild asymmetric left ventricular hypertrophy. The left ventricular function is normal. The Ejection Fraction is 65-70%. The left ventricular diastolic function is normal. The left atrium is severely dilated. The right atrium size is normal. There is moderate to severe valvular aortic stenosis. Calculated aortic valve area is 0.86 cm2 with maximum pressure gradient of 18 mmHg and mean pressure gradient of 11 mmHg. Mitral regurgitation is mild to moderate. There is mild tricuspid regurgitation. There is moderate pulmonic valvular regurgitation.
--- NOTE | 2016-09-16 09:21 | CP.PCM.PN ---
Subjective - Date & Time of Evaluation Date of Evaluation: 09/16/16 Time of Evaluation: 09:18 - Subjective Subjective: weeke staying in bed no new seizer k low long low Objective - Vital Signs/Intake and Output Vital Signs (last 24 hours): Temp Pulse Resp BP Pulse Ox 98.9 F 58 L 20 160/70 H 96 09/16/16 07:00 09/16/16 07:00 09/16/16 07:00 09/16/16 07:00 09/16/16 07:00 Intake and Output: 09/16/16 09/16/16 06:59 18:59 Intake Total 150 Balance 150 - Medications Medications: Current Medications Amlodipine Besylate (Norvasc) 5 mg PO DAILY [facility] Last Admin: 09/15/16 11:43 Dose: 5 mg Aspirin (Ecotrin) 81 mg PO DAILY [facility] Last Admin: 09/15/16 11:41 Dose: 81 mg Bupropion HCl (Wellbutrin Xl) 300 mg PO DAILY [facility] Last Admin: 09/15/16 11:45 Dose: 300 mg Calcium/Vitamin D (Oscal-D 250 Mg-125 Units Tab) 1 tab PO DAILY [facility] Dabigatran (Pradaxa) 150 mg PO BID [facility] Last Admin: 09/15/16 17:48 Dose: 150 mg Docusate Sodium (Colace) 100 mg PO BID [facility] Last Admin: 09/15/16 17:47 Dose: 100 mg Enalapril Maleate (Vasotec) 5 mg PO DAILY [facility] Last Admin: 09/15/16 11:44 Dose: 5 mg Escitalopram Oxalate (Lexapro) 20 mg PO DAILY [facility] Last Admin: 09/15/16 11:41 Dose: 20 mg Famotidine (Pepcid) 20 mg PO DAILY [facility] Last Admin: 09/15/16 11:43 Dose: 20 mg Hydrochlorothiazide (Microzide) 12.5 mg PO DAILY [facility] Last Admin: 09/15/16 11:42 Dose: 12.5 mg Lisinopril (Zestril) 10 mg PO DAILY [facility] Metoprolol Succinate (Toprol Xl) 25 mg PO DAILY [facility] Last Admin: 09/15/16 11:44 Dose: 25 mg Potassium Chloride (K-Dur 20 Meq Er Tab) 20 meq PO DAILY [facility] Rosuvastatin Calcium (Crestor) 10 mg PO [facility] Last Admin: 09/15/16 21:53 Dose: 10 mg Vitamin B Complex/Vitamin C (Berocca) 1 tab PO DAILY [facility] Last Admin: 09/15/16 11:40 Dose: 1 tab Zolpidem Tartrate (Ambien) 5 mg PO HS PRN PRN Reason: Insomnia Last Admin: 09/15/16 21:53 Dose: 5 mg - Labs Labs: 09/15/16 05:58 09/16/16 06:04 PT 12.7 SECONDS (9.7-12.2) H 09/13/16 13:39 INR 1.1 09/13/16 13:39 APTT 42 SECONDS (21-34) H 09/13/16 13:39 - Constitutional Appears: Non-toxic - Head Exam Head Exam: NORMAL INSPECTION - Eye Exam Eye Exam: Normal appearance Pupil Exam: NORMAL ACCOMODATION - ENT Exam ENT Exam: Mucous Membranes Moist - Respiratory Exam Respiratory Exam: NORMAL BREATHING PATTERN - Cardiovascular Exam Cardiovascular Exam: REGULAR RHYTHM - GI/Abdominal Exam GI & Abdominal Exam: Normal Bowel Sounds - Exam Exam: NORMAL INSPECTION - Back Exam Back Exam: NORMAL INSPECTION - Neurological Exam Neurological Exam: Oriented x3 - Psychiatric Exam Psychiatric exam: Normal Affect - Skin Skin Exam: Normal Color Assessment and Plan - Assessment and Plan (Free Text) Assessment: seizer s/p at fib s/p cva hypokaleamia hypocalceamia Plan: pt lab and d/c plane
[2016-09-16] MEDS: Vitamin B Complex/Vitamin C Tab PO SCH (09:23)
[2016-09-16] MEDS: Metoprolol Succinate 25 mg XL Tab PO SCH (09:26)
[2016-09-16] MEDS: buPROPion 150 mg/24 Hours XL Tab PO SCH (09:28)
[2016-09-16] MEDS ORDERED: Potassium Chloride 20 mEq ER Tab PO SCH (10:00)
[2016-09-16] MEDS ORDERED: Calcium-Vit D 250 mg-125 Units Tab UD PO SCH (10:00)
[2016-09-16] MEDS ORDERED: Potassium Chloride 20 mEq ER Tab PO ONE (15:30)
[2016-09-16 15:42] VITALS: BP 128/72; PULSE 74; TEMP 99.1
--- NOTE | 2016-09-16 16:24 | PN ---
DATE: 09/16/2016 The patient appears comfortable by talking to a visiting friend. The patient is verbalizing, but not oriented all the time. No chest pain or shortness of breath. No dizziness. PHYSICAL EXAMINATION: VITAL SIGNS: Blood pressure 160/70, heart rate 58, temperature 98.9, respirations 20. HEENT: Normocephalic. NECK: No JVD. CHEST: Clear. HEART: S1, S2 regular. EXTREMITIES: No edema. LABORATORIES: Today's potassium 3.1 and calcium is 8.3. ASSESSMENT: 1. Altered mental status. 2. Rule out seizure disorder. 3. Coronary artery disease with history of coronary stenting in the past. The most recent one was 8 years ago. 4. History of 3 cerebrovascular accidents in the past. 5. Paroxysmal atrial fibrillation. 6. Hypokalemia. RECOMMENDATIONS: Continue current aspirin 81 mg once a day. K-Dur was started 20 mEq orally daily. I will give an additional dose of 20 mEq p.o. now. Continue aspirin 81 mg once a day, Pradaxa at 15 0 mg once a day, Toprol-XL at 25 mg once a day, Zestril at 10 mg once a day, Crestor at 10 mg once a day. Manuel Marr MD cc: [id number] TT: 09/16/2016 16:23:49 Confirmation # [id number] Dictation # [id number] tn
--- NOTE | 2016-09-16 20:39 | CON ---
DATE: 09/16/2016 CHIEF COMPLAINT AND REASON FOR CONSULTATION: The patient referred by Dr. Hodge for evaluation and consultation. The patient has a history of depression, anxiety, and had new onset seizure. HISTORY OF PRESENT ILLNESS: The case of a 80-year-old female who was brought in after the patient has new onset seizure. This lasted for 10 minutes, according to the chart. The patient was referred for comanagement. The patient has been having off and on periods of confusion, and had a history of depression and anxiety. The patient has been seeing Dr. Hinojosa an outpatient, and was given Wellbutrin 300 mg daily, as well as Lexapro 20 mg daily. According to the son, the dose of the Lexapro was recently changed from 10-20 because the patient was complaining of anxiety. The patient also noted the hospital to having increasing periods of confusion, and the family reports that the patient has been having what seems to be having periods of increasing confusion at night, which is suggestive of sundowning. Today when seen, the patient is calm, still forgetful. Seen with family member , and wants to go home. According to the son, the patient has 24-hour home caregiver at home. The patient knows where she is, she is oriented to month and date, less confused, and wants to go home. PAST PSYCHIATRIC HISTORY: History of anxiety, depression, possible dementia. PAST MEDICAL HISTORY: The patient has history of new onset seizure, and CVA. ALLERGIES: No known allergies. DRUG HISTORY: Denies any. PSYCHOSOCIAL HISTORY: The patient lives with a 24-hour caregiver. The patient had a CAT scan of the head done on 09/13, that showed the following result: The patient has no evidence of acute intracranial hemorrhage, moderate atrophy. Had an MRI of the brain done which showed no evidence of acute infarct or acute pathology of the brain, moderate atrophy, and moderate chronic microvascular ischemic changes. The patient also was seen by neurology in consult, and the impression of the neurologist was patient had new onset seizure , and also to take the patient off the Wellbutrin as the Wellbutrin can lower the seizure threshold, especially in a patient with previous injury patterns in the subcortical and thalamic region. The patient is currently taking the following medication. The patient is on Lexapro 20 mg daily, Wellbutrin 300 mg daily, Ambien 5 mg at bedtime, rosuvastatin. The patient is taking hydrochlorothiazide, Pradaxa, metoprolol, lisinopril. VITAL SIGNS: Temperature is 99.1, pulse rate 74, blood pressure is 128/72, respirations 20, oxygen sats 96%. On review of her laboratories, the patient's glucose is 118. Sodium is 142, creatinine is 0.9. TSH is 1.56. REVIEW OF SYSTEMS: The patient is alert, verbal, forgetful, is not agitated; seen in her room with the family. The patient wants to go home. SKIN: No diaphoresis. HENT: No headache, no dizziness. NECK: Supple. RESPIRATORY: No dyspnea. CARDIOVASCULAR: No chest pain. GASTROINTESTINAL: No nausea, no vomiting. According to the family, she eats very well. EXTREMITIES: Gait is unsteady at times. No tremors. MUSCULOSKELETAL: feels weak.. NEUROLOGIC: Alert with periods of confusion, but seems to be improving. GENITOURINARY: No urinary incontinence. MENTAL STATUS EXAMINATION: Elderly female who is 80 years old, about 5 feet 4 inches, and weighs 148 pounds. Mood is calm. Affect is reactive. Speech spontaneous. Oriented times 2, place and person. Thought Process: Forgetful. Thought Content: The patient wants to go home. No overt psychosis. The patient has no overt psychosis, no paranoia, no hallucinations. or suicidal or homicidal ideation. Attention and memory seem to be limited. Insight and judgment limited. Impulse control is fair at this time. IMPRESSION: History of depression, as well as dementia, with possible metabolic encephalopathy secondary to new onset seizure, as well as consider vascular dementia with mood changes. PLAN AND RECOMMENDATION: The patient is seen, meds reviewed. I do recommend to discontinue the Wellbutrin, as the patient has a history of new onset seizure , and also the patient is on Lexapro. The combination of Lexapro and Wellbutrin will increase the patient's risk of seizure. The patient is also advised, due to increasing periods of sundowning, would benefit from start a dose of Namenda XR 7 mg at bedtime. This could be done as an outpatient with her outpatient psychiatrist, Dr. Long. I do recommend also that the Lexapro dose to be lowered to 10 mg instead of 20 mg daily, as the patient is a geriatric patient. The patient is psychiatrically stable for discharge to her family, and to follow up with Dr. Long as an outpatient, as well as to follow up with her primary care doctor. Tray Acosta MD cc: [id number] TT: 09/16/2016 20:38:54 Confirmation # [id number] Dictation # [id number] MTDD
--- NOTE | 2016-09-18 13:15 | CARD ---
APPROVED REPORT EKG Measurement Heart [id number] <Conclusion> Sinus bradycardia with sinus arrhythmia Otherwise normal ECG
--- NOTE | 2016-09-23 11:46 | DS ---
This patient was brought to the Emergency Room by the caregiver, having new onset of seizure. She wa s staring and she was shaking and having tremors of her hands. It went for 10 minutes to an hour. Th e patient has a history of CVA before. She has depression and anxiety history as well. When she cam e in, her vital signs were stable. Her lab, she has hemoglobin 11.1 and the rest of the lab is okay. Potassium was a little bit low. The patient had a head CT scan, MRI, chest x-ray, , troponin and EKG. The results of the CAT scan showed the infarction. No hemorrhage. The MRI also confirmed that she has some encephalomalacia in some of the areas of the brain. She was seen in consultation w [facility] neurology and psychiatry. She was taking Wellbutrin which was discontinued because it decreases the threshold of seizure. She was stable. She did not have anymore seizures during the time she was here. She was also seen by Dr. Marr, cardiology, for history of coronary artery disease and at [facility] and she has only paroxysmal atrial fibrillation and hyperkalemia. She was continue d on aspirin and potassium and her Pradaxa and Toprol XL and Zestril and Crestor. She will be follow ed up by her MD on discharge and she was discharged on 09/16/2016 to follow up by her MD and the psychi atrist. FINAL DIAGNOSES: Acute onset of seizure the infarction of the brain, depression, anxiety, hype rkalemia. Joy Hodge MD cc: [id number] TT: 09/23/2016 11:45:46 celio
== END 2016-09-16 20:15 | disposition home or self-care (01) | DRG 56 ==
LOC: C.ER 11:59 → C.9E 14:21 → C.6T 16:14
PROVIDERS: ADMIT Internal Medicine; ATTEND Internal Medicine
DX: I69.398 Other sequelae of cerebral infarction (principal); G93.41 Metabolic encephalopathy; R56.9 Unspecified convulsions; I48.0 Paroxysmal atrial fibrillation; R00.1 Bradycardia, unspecified; E83.51 Hypocalcemia; I10 Essential (primary) hypertension; F01.50 Vascular dementia, unspecified severity, without behavioral disturbance, psychotic disturbance, mood disturbance, and anxiety; T43.295A Adverse effect of other antidepressants, initial encounter; E87.6 Hypokalemia; I25.10 Atherosclerotic heart disease of native coronary artery without angina pectoris; E78.00 Pure hypercholesterolemia, unspecified; F32.9 Major depressive disorder, single episode, unspecified; F41.9 Anxiety disorder, unspecified; Z96.653 Presence of artificial knee joint, bilateral; Z95.5 Presence of coronary angioplasty implant and graft; Z91.81 History of falling